=== PATIENT | female | born 1960 | race Caucasian/White ===

== ENCOUNTER → 2017-02-22 | Outpatient (CLI) | payer OTHER ==
--- NOTE | 2017-02-22 16:40 | KCIC ---
Bilateral digital screening mammogram History: Annual screening mammography Comparison: February 21, 2016 and September 07, 2008 Findings: Breast Tissue Density B :There are scattered areas of fibroglandular density. Bilateral digital mammogram images are obtained with CAD. No suspicious masses, architectural distortion, or grouped microcalcifications are identified. Impression: Negative exam. Recommend screening mammogram in one year. BI-RADS Category 1: Negative. PQRS compliance statement - Patient information was entered into a reminder system with a target due date for the next mammogram. Electronically signed by: Maeve Shah MD (02/22/2017 4:37 PM) [facility]
== END | disposition home or self-care (01) ==
LOC: KCIC MAMMO 09:34
PROVIDERS: ATTEND Family Medicine
DX: Z12.31 Encounter for screening mammogram for malignant neoplasm of breast (principal)
CPT/HCPCS: G0202; 77067

== ENCOUNTER → 2018-02-23 | Outpatient (CLI) | payer OTHER ==
--- NOTE | 2018-02-23 12:51 | KCIC ---
Bilateral digital screening mammograms: Reason for examination: Routine screening. Comparison is made to previous studies dated 02/22/2017 and 02/21/2016. Interpretation was made with the benefit of CAD. The skin and nipples show no abnormalities. No abnormal axillary lymph nodes are seen. The breast parenchyma shows scattered fibroglandular density. (Breast density: Category B.) There continues to be some asymmetric parenchyma in the upper outer quadrant of the right breast posteriorly which is unchanged. There are no new dominant masses, suspicious calcifications or architectural distortions. Impression: No evidence of malignancy. Recommend routine screening. BI-RADS Category 2: Benign. "Our facility is accredited by the [employer] Mammography [employer]." This patient's information has been entered into a reminder system for the patient to be notified with the results of her examination and a target date for the next mammogram. Electronically signed by: Veronica Serrano MD (02/23/2018 12:47 PM) [id number]
== END | disposition home or self-care (01) ==
LOC: KCIC MAMMO 09:01
PROVIDERS: ATTEND Family Medicine
DX: Z12.31 Encounter for screening mammogram for malignant neoplasm of breast (principal)
CPT/HCPCS: 77067

== ENCOUNTER → 2019-02-28 | Outpatient (CLI) | payer OTHER ==
--- NOTE | 2019-02-28 10:40 | KCIC ---
EXAM: Bilateral screening mammogram. HISTORY: 59-year-old female presents for screening mammography. TECHNIQUE: Full-field digital craniocaudal and mediolateral oblique views of both breasts are obtained for evaluation. Computer aided detection with [employer] software version 9.3 was applied. COMPARISON: 02/23/2018 BREAST PARENCHYMAL DENSITY: Level B - Scattered fibroglandular densities. FINDINGS: There is no new suspicious mass, microcalcification or region of architectural distortion. IMPRESSION: BI-RADS Category 2: Benign finding(s). RECOMMENDATION: Annual mammography is recommended. If your mammogram demonstrates that you have dense breast tissue, which could hide abnormalities, and if you have other risk factors for breast cancer that have been identified, you might benefit from supplemental screening tests that may be suggested by your ordering physician. Dense breast tissue, in and of itself, is a relatively common condition. This information is not provided to cause undue concern, but rather to raise your awareness and to promote discussion with your physician regarding the presence of other risk factors, in addition to dense breast tissue. A report of your mammography results will be sent to you and your physician. You should contact your physician if you have any questions or concerns regarding this report. Mammography is a sensitive method for finding small breast cancers, but it does not detect them all and is not a substitute for careful clinical examination. A negative mammogram does not negate a clinically suspicious finding and should not result in delay in biopsying a clinically suspicious abnormality. PQRS compliance statement - Patient information was entered into a reminder system with a target due date for the next mammogram. "Our facility is accredited by the [employer] Mammography [employer]." Electronically signed by: Julisa Siddiqi MD (02/28/2019 10:37 AM) [id number]
--- NOTE | 2019-02-28 15:21 | KCIC ---
CLINICAL HISTORY: Lung cancer screening, smoker of 45 years. One pack per day. COMPARISON: None available. TECHNIQUE: Noncontrast helical low-dose CT chest per standard departmental protocol. PQRS compliance statement - One or more of the following individualized dose reduction techniques were utilized for this study: 1. Automated exposure control 2. Adjustment of the mA and/or kV according to patient size 3. Use of iterative reconstruction technique FINDINGS: Lung screening specific (LUNG-RADS): No suspicious lung nodule or mass is seen. Emphysematous changes are seen. Subpleural linear reticular opacities in the medial right lower lobe likely scarring/atelectasis. Calcified granuloma left lower lobe. Potentially significant incidental findings (LUNG-RADS category S): None Other incidental findings: Calcified mediastinal and hilar lymph nodes are seen. No lymphadenopathy by size criteria. Calcified granuloma are seen within the spleen. RECOMMENDATIONS/ IMPRESSION: 1. LUNG-RADS category: 1. Recommend [address] low-dose CT lung screening per ACR guidelines. 2. Other incidental findings as above. LUNG-RADS category recommendations: Category 1: Surveillance scan in 12 months per ACR guidelines Category 2: Surveillance scan in 12 months per ACR guidelines Category 3: Multidisciplinary consultation in the Lung Cancer Screening Clinic. The Lung Cancer Screening coordinator will contact the patient to set up an appointment for further evaluation per ACR guidelines Category 4: Multidisciplinary consultation in the Lung Cancer Screening Clinic. The Lung Cancer Screening coordinator will contact the patient to set up an appointment for further evaluation per ACR guidelines Category S: Clinically significant or potentially significant findings Category C: Patient with prior diagnosis of lung cancer who returns to screening Category O: Prior chest CT being located for comparison; part or all of lungs cannot be evaluated Electronically signed by: Pawan Ng MD (02/28/2019 3:18 PM) [id number]
== END | disposition home or self-care (01) ==
LOC: KCIC MAMMO 08:05
PROVIDERS: ATTEND Family Medicine
DX: Z12.31 Encounter for screening mammogram for malignant neoplasm of breast (principal); Z12.2 Encounter for screening for malignant neoplasm of respiratory organs; J43.9 Emphysema, unspecified; J84.10 Pulmonary fibrosis, unspecified; F17.200 Nicotine dependence, unspecified, uncomplicated
CPT/HCPCS: 77067; G0297